=== PATIENT | male | born 1950 | race Caucasian/White ===

== ENCOUNTER 2023-06-05 09:20 | Outpatient (CLI) | payer MEDICARE, OTHER | END 2023-06-05 09:21 | disposition home or self-care (01) | LOC: CSHCT 09:20 | PROVIDERS: ATTEND Otolaryngology Plastic Surgery within the Head & Neck | DX: H90.3 Sensorineural hearing loss, bilateral (principal) | CPT/HCPCS: 70480 ==

== ENCOUNTER 2023-09-07 06:19 | Day surgery (SDC) | payer MEDICARE, OTHER ==
[2023-09-05 15:23] VITALS: BMI 27.3
[2023-09-07] MEDS ORDERED: Dexamethasone 20 MG/5 ML VIAL ONE (06:23)
[2023-09-07] MEDS ORDERED: Ondansetron PF 4 MG/2 ML Vial ONE (06:23)
[2023-09-07] MEDS ORDERED: PROPOFOL 20 ML ONE ×2 (06:23→08:06)
[2023-09-07] MEDS ORDERED: Fentanyl 250 MCG/5 ML VIAL ONE (06:23)
[2023-09-07] MEDS ORDERED: PHENYLEPHRINE-NS 100 MCG/ML 10 ML SYRINGE ONE (06:23)
[2023-09-07] MEDS ORDERED: Midazolam HCl 2 mg/2 ml Vial ONE (06:23)
[2023-09-07] MEDS ORDERED: Rocuronium Bromide 10 MG/ML (10ML VIAL) ONE (06:23)
[2023-09-07] MEDS ORDERED: Lidocaine 1% PF 5 ML VIAL ONE (06:23)
[2023-09-07] MEDS ORDERED: SUGAMMADEX SODIUM 200 MG/2 ML VIAL ONE (06:26)
[2023-09-07] MEDS ORDERED: Phenylephrine 40 MG/NS 250 ML 250 ML ONE (06:27)
[2023-09-07] MEDS ORDERED: EPINEPHrine 1 MG/ML VIAL ONE (06:32)
[2023-09-07] MEDS ORDERED: CEFAZOLIN 2 GM VIAL ONE (06:33)
[2023-09-07] MEDS ORDERED: Lidocaine 1% w/Epinephrine 1:100K 20 ML VIAL ONE (06:33)
[2023-09-07] MEDS ORDERED: Mupirocin 2% Ointment 22 GM Tube ONE (06:33)
[2023-09-07] MEDS ORDERED: Glycopyrrolate 0.2 MG/ML 5 ML SYRINGE ONE (07:53)
[2023-09-07] MEDS ORDERED: ePHEDrine Sulfate 50 MG/10 ML VIAL ONE (07:56)
== END 2023-09-07 11:05 | disposition home or self-care (01) ==
LOC: CSHSDC 06:19
PROVIDERS: ATTEND Otolaryngology Plastic Surgery within the Head & Neck
PROC: 099670Z Drainage of Left Middle Ear with Drainage Device, Via Natural or Artificial Opening (ICD-10-PCS; principal; 2023-09-07)
PROC: 099570Z Drainage of Right Middle Ear with Drainage Device, Via Natural or Artificial Opening (ICD-10-PCS; 2023-09-07)
DX: H90.3 Sensorineural hearing loss, bilateral (principal); H69.83 Other specified disorders of Eustachian tube, bilateral; J45.909 Unspecified asthma, uncomplicated; E78.00 Pure hypercholesterolemia, unspecified; I10 Essential (primary) hypertension; Z98.890 Other specified postprocedural states; Z79.899 Other long term (current) drug therapy
CPT/HCPCS: 69930; 70260; J0171; L8614 ×2; Q9968; J1100; J2250; J2405; J2704; J3010